=== PATIENT | female | born 1960 | race American Indian/Alaskan Native ===

== ENCOUNTER 2019-11-02 18:20 | Emergency (ER) | payer OTHER ==
--- NOTE | 2019-11-03 00:46 | ER ---
DATE SEEN: 11/02/2019 REASON FOR VISIT: Confusion. HISTORY OF PRESENT ILLNESS: This is a 58-year-old female, who came in, brought in by the niece because she noticed that she was mixing up her words. She is also complaining of being unsteady on her knees and also constant jerking movements because she has some sharp pain and discomfort on the left ear. She has a mild dull headache, but the symptoms have been chronic. There has been no drooping of the side or weakness of one side. No numbness. No chest pain or shortness of breath. PAST MEDICAL HISTORY: Previously healthy with no active medical problems. ALLERGIES: No known allergies. SOCIAL HISTORY: Does not smoke or drink. REVIEW OF SYSTEMS: All other systems negative. PHYSICAL EXAMINATION: GENERAL: When I examine her, she is not in distress. VITAL SIGNS: Blood pressure and temperature within reference range. Her pulse is 89, and she is afebrile. HEENT: Head is atraumatic. Ears, negative TMs x2. Canals are patent. NECK: Supple. CARDIOVASCULAR: Normal. CHEST: Clear. NEUROLOGIC: Normal. No signs of day or psychosis. Cranial nerves 2 through 12. LABORATORY DATA: CBC and CMP are normal. UA and urine drug screen normal. CT of head unremarkable. EKG unremarkable. IMPRESSION: 1. Abnormal speech. 2. Otalgia. PLAN: Reassurance. I recommended that she follow up with her PCP on , consider MRI of the brain if symptoms persist. /[id number] DWAIN/SHANDA
== END 2019-11-02 19:50 | disposition home or self-care (01) ==
LOC: FB.ED 18:20
DX: H92.02 Otalgia, left ear (principal); R47.9 Unspecified speech disturbances
CPT/HCPCS: 36415; 70450; 80053; 80305-QW; 81001; 82962; 84484; 85025; 93005; 99285-25; G0480

== ENCOUNTER 2023-09-19 05:58 | Day surgery (SDC) | payer MEDICAID, OTHER ==
[2023-09-19] MEDS ORDERED: Propofol 200 MG/20 ML SDV IV ONE (05:59)
[2023-09-19] MEDS ORDERED: Sodium Chloride 0.9% 10 ML Syringe FLUSH PRN (07:00)
[2023-09-19] MEDS ORDERED: Lactated Ringers 1,000 ML IV SCH (07:00)
[2023-09-19] MEDS ORDERED: Simethicone Drops 40 MG/0.6 ML 30 ML Bottle PO ONE (08:13)
== END 2023-09-19 09:28 | disposition home or self-care (01) ==
LOC: FB.SDS 05:58
PROVIDERS: ATTEND Surgery
DX: Z12.11 Encounter for screening for malignant neoplasm of colon (principal); D12.6 Benign neoplasm of colon, unspecified; K57.30 Diverticulosis of large intestine without perforation or abscess without bleeding; K21.9 Gastro-esophageal reflux disease without esophagitis; F32.A Depression, unspecified; E78.5 Hyperlipidemia, unspecified; E66.9 Obesity, unspecified; Z68.35 Body mass index [BMI] 35.0-35.9, adult; Z87.891 Personal history of nicotine dependence; Z98.51 Tubal ligation status
CPT/HCPCS: 45384; 45385; 88305; A9270; J2704; J7120